=== PATIENT | male | born 1945 | race Caucasian/White ===

== ENCOUNTER 2016-05-19 06:09 | Day surgery (SDC) | payer MEDICARE, OTHER ==
[~2016-05-19] VITALS: Ht 154.9 cm; Wt 90.4 kg
--- NOTE | ~2016-05-19 | ECHO ---
Transesophageal Echocardiography Report (MERA) Demographics Patient Name RAND CHAVEZ JR Date of Study 05/19/2016 Patient Number [id number] Visit Number [id number] Date of 1945 Room Number G6399 Gender Male Number Age 71 year(s) Referring Yamilet Chavez Machinery Cleaner Michelle Donnelly Physician RDCS, RVT Physician Interpreting Yamilet Chavez Highway Engineering Teacher Physician MD Supervising Ordering Yamilet Chavez MD/MLP Physician MD Nurse Stress Elevators Inspector Conclusions Summary Normal LV/RV size and systolic function. LVEF is 60-65%. The left atrium is mildly dilated. Informed consent was obtained, bubble study was done, there is no evidence for a PFO or ASD, after 3 cardiac cycles, there are a few bubbles that cross over suggestive of late shunting., possible pulmonary AVM. There is prolapse of the P1 segment of the posterior leaflet of the MV with eccentric jet of MR directed anteriorly, that is mild. Procedure Type of Study MERA procedure:Color Doppler, MERA w/Contrast. Procedure Date Date: 05/19/2016 Start: 08:16 AM Study Location: Inpatient Portable Technical Quality: Adequate visualization Indications:Mitral Regurgation. Appropriate Use Criteria: 9 Patient Status: Routine HR: 82 bpm BP: 145/71 mmHg O2 Saturation: 95 % MERA Performed By: the attending and the educational paraprofessional Type of Anesthesia: Moderate sedation Allergies - Morphine. Findings Left Ventricle The left ventricle is normal in size . Right Ventricle Normal right ventricular size and function. Left Atrium The left atrium is mildly dilated. Informed consent was obtained, bubble study was done, there is no evidence for a PFO or ASD, after 3 cardiac cycles, there are a few bubbles that cross over suggestive of late shunting., possible pulmonary AVM. Right Atrium The right atrium is not dilated. Mitral Valve There is prolapse of the P1 segment of the posterior leaflet of the MV with eccentric jet of MR directed anteriorly, that is mild. Aortic Valve The aortic valve is mildly sclerotic. No AI. Tricuspid Valve Normal appearing tricuspid valve. Mild TR. Pulmonic Valve Trivial pulmonic valve regurgitation by color Doppler. Miscellaneous No plaque seen in the thoracic aorta. Contractility Score LV regional wall motion:(0-Non visualized 1-Normal 2-Hypokinesis 3-Akinesis 4-Dyskinesis 5-Aneurysm) Signature dtt: YAEL MERINO dtd: 05/19/16 0816 Physician Self Edit
--- NOTE | ~2016-05-19 | CATH ---
Cardiac Diagnostic Report Demographics Patient Name KATHY Candelaria Gender Male Date of 1945 Age 71 year(s) Patient Number [id number] Date of Study 05/19/2016 Visit Number [id number] Room Number G6399 [place] [id number] Ht 154.94 cm Wt 90.4 kg Referring Shantanu Gonzales Jolynn Primary Physician Physician Performing [place] Secondary Physician Physician Kathy FONTAINE Diagnostic [facility] Assisting Physician Physician Kathy FONTAINE Interventional Physician Tipping Machine Operator Automatic Physician Findings and Conclusions Diagnostic Findings and Conclusion Essentially normal epicardial coronary arteries. No evidence of pulmonary HTN. PCW 7 mmHg RV 24/4, 6 RA 7 mmHg LV EDP 12 mmHg MVP with mild eccentric MR on MERA. Diagnostic Recommendations Patient will be discharged later today. Will start metoprolol succinate for better BP control. Monitor for symptoms of CHF and serial echocardiogram to follow up on mitral regurgitation. Procedure Description The patient was brought to the diagnostic cardiac catheterization-EP laboratory in the fasting, non-sedated state. Informed consent was obtained in the written and verbal form after the risks and benefits were explained. The patient had no further questions and agreed to proceed. The planned puncture-incision site(s) were shaved and prepped with ChloraPrep and draped in the usual sterile manner. Conscious sedation, supplemental oxygen, and pain control medications were delivered by a registered nurse under physician guidance. Surface ECG rhythm, blood pressure measurement, and pulse oximetry were monitored throughout the procedure. Arterial access. The access site was infiltrated with lidocaine. The vessel was entered with the Seldinger technique. A sheath was advanced into the vessel and used for catheter placement. Venous access. The access site was infiltrated with 2% lidocaine. The vessel was entered with the Seldinger technique. A sheath was advanced into the vessel and used for catheter placement. Selective left coronary angiography. A catheter was advanced into the left coronary vessel ostium under Fluoroscopic guidance. Contrast was injected by hand. Images were obtained in multiple projections. Selective right coronary angiography. A catheter was advanced into the right coronary vessel ostium under fluoroscopic guidance. Contrast was injected by hand. Images were obtained in multiple projections. Left heart catheterization. A catheter was advanced across the aortic valve to the left ventricle under fluoroscopic guidance. Resting hemodynamics were obtained. Right heart catheterization. A [place] Josette catheter was successfully advanced to the right atrium, right ventricle, pulmonary artery, and pulmonary artery wedge position under fluoroscopic guidance. Resting hemodynamics were obtained. Measurements included pressures, arterial and venous oxygen saturation samples, and cardiac output. The [place] was removed without difficulty. Arterial and Venous hemostasis was achieved. The patient was transferred to a regular nursing floor via cart accompanied by a nurse. The patient left the laboratory in stable condition. Diagnostic Cath Status: Elective Procedure Procedure Type Diagnostic procedure:Angiography:, Right and Left Heart Cath, Coronary Angios Indications: Severe mitral regurgitation and Dyspnea with exertion. The procedure was explained in detail to the patient. Risks, complications and alternative treatments were reviewed. Written consent was obtained. Medications Reviewed with Patient prior to Procedure. Angiographic Findings Dominance: Left Cardiac Arteries and Lesion Findings LMCA: Normal (0% Stenosis). LAD: Normal (0% Stenosis). LCx: Normal (0% Stenosis). RCA: Normal (0% Stenosis). Procedure Data Procedure Date Date: 05/19/2016Start: 09:29 AMEnd: 10:09 AM Entry Locations - Retrograde Percutaneous access was performed through the Right Femoral vein. A 6 Fr sheath was inserted. Hemostasis was successfully obtained using Manual Compression. Closure Comments: Pressure held by Tonia Caputo. - Antegrade Percutaneous access was performed through the Right Radial artery (Primary location). A 6 Fr sheath was inserted. Hemostasis was successfully obtained using Mechanical Compression. Closure Comments: 13 ml or air in R. Band by Tonia Caputo. Procedure Medications Order and Administration + + + + + !Time !Medication !Dosage !Route ! + + + + + !05/19/2016 09:14 AM !Oxygen !2 l/min ! ! + + + + + !05/19/2016 09:24 AM !Fentanyl !25 mcg !I.V. ! + + + + + !05/19/2016 09:26 AM !Versed !0.5 mg !I.V. ! + + + + + !05/19/2016 09:31 AM !Versed !0.5 mg !I.V. ! + + + + + !05/19/2016 09:46 AM !Heparin (ACC_3) !5000 units !I.V. bolus ! + + + + + !05/19/2016 10:02 AM !Oxygen ! ! ! + + + + + Devices Used - A6 Fr. Balloon Wedge Catheterwas used for:Right heart cath. - A5 Fr. BS JR 4 Diag. Catheterwas used for:Right coronary angiography. - A5 Fr. BS JL 3.5 Diag. Catheterwas used for:Left coronary angiography. - A5 Fr. BS Angled Pigtail Diag. Catheterwas used for:LV Pressures. - A5 Fr. BS JR 4 Diag. Catheterwas used for:Was not used. Contrast Material - Isovue 71469 ml Fluoroscopy Time: Diagnostic: 4:35 minutes. Total: 4:35 minutes. Fluoroscopy Dose: Diagnostic: 479 mGy. Total: 479 mGy. Estimated Blood Loss: 5 ml. Medical History Performed Procedures and Imaging Results - Echocardiographywas performed. Allergies - Morphine. Risk Factors The patient risk factors include:last creatinine: 1 mg/dl, creatinine clearance: 84.12 ml/min, former tobacco use and prior heart failure . Admission Data Admission Date: 05/19/2016 Admission Time: 06:09 AM Insurance Payors: Medicare. Clinical Evaluation Leading to Procedure - The patient's CAD presentation was assessed as: Symptom unlikely to be ischemic. 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 - The patient has been in a state of heart failure within the past two weeks. - The patient's heart failure status was assessed as NYHA Class II, with CHF symptoms of MILLER. Hemodynamics Condition: Rest O2 Consumption: Estimated: 214.16Heart Rate: 65 bpm Oxygen Saturation +--------+-----+----+ +----+ + !Location!pCO2 !pO2 !% Saturation !Hgb !O2 Content ! +--------+-----+----+ +----+ + !RA ! ! !66.7 !15.7! ! +--------+-----+----+ +----+ + !PA ! ! !61.5 !15.7! ! +--------+-----+----+ +----+ + !AO ! ! !93.1 !15.7! ! +--------+-----+----+ +----+ + Pressures (mmHg) +-----+ + !Site !Pressure ! +-----+ + !PA ! () ! +-----+ + !PCW !11/28 (7) ! +-----+ + !RV !/ ,6 ! +-----+ + !RA !10/27 (5) ! +-----+ + !AO !159/81 (113) ! +-----+ + !LV !171/7 ,14 ! +-----+ + !LV !169/5 ,14 ! +-----+ + !AO !157/71 (108) ! +-----+ + !LV !166/5 ,13 ! +-----+ + Cardiac Output +------+ + + + !Method!CO (l/min) !CI (l/min/m2) !SV (ml) ! +------+ + + + !Sher !3.17 !1.7 !48.89 ! +------+ + + + Valve Gradients and Areas + +--------+--------+--------+---------+ + + !Valve !Peak !Mean !Area !Index !Flow !Source ! + +--------+--------+--------+---------+ + + !Aortic !9 !9 !1.02 !0.54 !135.35 !Sher ! + +--------+--------+--------+---------+ + + !Aortic !9 !9 ! ! ! ! ! + +--------+--------+--------+---------+ + + Shunts Oxygen Values O2 Capacity 213.52 O2 Consumption 214.16 Flows (l/min) Qs 3.8 Qe/Qp 1.2 Qp 3.17 Qp/Qs 0.83 Qe 3.8 Vascular Resistance (dynes x sec x cm-5) + +-----+-----+----+----+---------+-------+ !CO method !TSVR !SVR !TPVR!PVR !TPVR/TSVR!PVR/SVR! + +-----+-----+----+----+---------+-------+ !Sher !34.03!32.45!5.93!3.59!0.17 !0.11 ! + +-----+-----+----+----+---------+-------+ !Qp or Qs !28.39!27.07!5.93!3.59!0.21 !0.13 ! + +-----+-----+----+----+---------+-------+ Discharge Data Discharge Date: 05/19/2016 Hospital Status: Outpatient Signatures dtt: KATHY MERINO dtd: 05/19/16 0929 Physician Self Edit
[~2016-05-19 06:09] MED LIST: ALLEGRA-D 24 H1 EACH PO; PREVACID30 MG PO
[2016-05-19 07:05] LABS: BASOPHIL % 0.7 %; EOSINOPHIL # 0.1 K/uL (0.0-0.5); EOSINOPHIL % 1.3 %; HEMATOCRIT 45.2 % (37.0-53.0); HEMOGLOBIN 15.7 g/dL (11.0-16.0); IMMATURE GRANULOCYTE % 0.4 %; MCH 29.2 pg (27.0-34.0); MCHC 34.7 gm/dL (32.0-36.5); MCV 84.2 fl (83.0-98.0); MONOCYTE # 0.6 K/uL (0.0-1.0); MONOCYTE % 10.3 %; MPV 9.5 fl (9.4-12.4); NEUTROPHIL # (ANC) 2.9 K/uL (1.4-9.0); NEUTROPHIL % 51.3 %; NRBC % 0 /100WBC (0-0.00); PLATELET COUNT 141 K/uL (150-450); RBC 5.37 M/uL (3.50-5.50); WBC 5.6 K/uL (4.0-11.0)
[2016-05-19 07:11] LABS: PROTIME 10.7 SECONDS (9.6-11.1)
[2016-05-19 07:30] LABS: ALBUMIN 3.5 gm/dL (3.5-5.0); ALK PHOS 73 IU/L (33-138); ALT 54 IU/L (12-78); ANION GAP 11.9 (10.0-19.0); AST 23 IU/L (10-40); BLOOD UREA NITROGEN 18 mg/dL (6-24); CALCIUM 8.7 mg/dL (8.5-10.5); CHLORIDE 109 mMol/L (96-110); CO2 24 mMol/L (22-32); POTASSIUM 3.9 mMol/L (3.7-5.1); SODIUM 141 mMol/L (135-145); TOTAL BILIRUBIN 0.7 mg/dL (0.0-1.5); TOTAL PROTEIN 6.5 g/dL (6.0-8.4)
[2016-05-19 07:33] LABS: ESTIMATED GFR (MDRD EQUATION) > 60
[2016-05-19] MEDS ORDERED: TOPROL XL25 MG PO (11:01)
== END 2016-05-19 14:18 | disposition disaster alternative care site (69) ==
LOC: GSDC 06:09 → GPCU 06:09 → GPOC 08:00 → GSDC 14:18
PROVIDERS: Internal Medicine Interventional Cardiology
PROC: 4A023N8 Measurement of Cardiac Sampling and Pressure, Bilateral, Percutaneous Approach (ICD-10-PCS; principal; 2016-05-19)
PROC: B2111ZZ Fluoroscopy of Multiple Coronary Arteries using Low Osmolar Contrast (ICD-10-PCS; principal; 2016-05-19)
PROC: B246ZZ4 Ultrasonography of Right and Left Heart, Transesophageal (ICD-10-PCS; principal; 2016-05-19)
DX: I34.0 Nonrheumatic mitral (valve) insufficiency (principal); I34.1 Nonrheumatic mitral (valve) prolapse; I50.9 Heart failure, unspecified; R06.02 Shortness of breath; R07.9 Chest pain, unspecified; K21.9 Gastro-esophageal reflux disease without esophagitis; Z87.891 Personal history of nicotine dependence
CPT/HCPCS: C1769; C1894; J1644; J2001; J2250; J3010; J7030